=== PATIENT | male | born 1995 | race Caucasian/White ===

== ENCOUNTER 2023-03-25 11:04 | Emergency (ER) | payer BC ==
[2023-03-25] MEDS ORDERED: Acetaminophen 500 MG TAB ONE (11:22)
[2023-03-25] MEDS ORDERED: Lidocaine 1% (PF) 30 ML VIAL ONE (11:22)
[2023-03-25] MEDS ORDERED: Boostrix 0.5 ML (Tdap) VIAL (>/=7 yrs of age) ONE (11:22)
== END 2023-03-25 12:04 | disposition home or self-care (01) ==
LOC: CSHERS 11:04
DX: S61.012A Laceration without foreign body of left thumb without damage to nail, initial encounter (principal); F17.290 Nicotine dependence, other tobacco product, uncomplicated; W26.8XXA Contact with other sharp object(s), not elsewhere classified, initial encounter; Z23 Encounter for immunization
CPT/HCPCS: 12001; 90471; 90715; J2001